=== PATIENT | female | born 1970 | race Caucasian/White ===

== ENCOUNTER 2016-09-12 22:34 | Emergency (ER) | payer SELFPAY ==
[~2016-09-12] VITALS: Ht 157.5 cm; Wt 54.7 kg
[~2016-09-12 22:34] MED LIST: HYDR-3702 PO; HYDR-3754 PO; HYDR-707; IBUP200C PO; LEVO500T16 PO; OXYC1TAB87 PO; TRM50TRX
--- OUTSIDE RECORDS SUMMARY | 2016-09-12 22:38 | XMS REPORT | Referral Summary ---
Author Author [facility] Organization [facility] Address Unknown Phone Unavailable Care Team Providers Care Cytology Manager Name Role Phone Don Torres PCP Unavailable Encounter [facility] [id number] Date(s): 10/24/15 - 10/24/15 [facility] [address] [place] [id number] Discharge Disposition: 01-Home or Self Care Attending Physician: Bryan Bay MD Admitting Physician: Bryan Bay MD Vital Signs Most recent to 1 oldest [Reference Range]: Temperature Oral 36.7 degC [35.8-37.3 degC] (10/24/15 8:39 AM) Problem List No data available for this section Allergies, Adverse Reactions, Alerts Substance Reaction Severity Status naproxen Active penicillin Active Medications [place] 7.5 mg-325 mg oral tablet tabs, Oral, q6hr, 0 Refill(s) Start Date: 10/14/15 Status: OrderedPercocet 5/325 oral tablet 1 tabs, Oral, q4hr, as needed for pain, # 30 tabs, 0 Refill(s) Start Date: 10/24/15 Stop Date: 10/25/15 Status: OrderedPercocet 5/325 oral tablet tabs, Oral, q6hr, 0 Refill(s) Start Date: 10/14/15 Status: OrderedPercocet 7.5/325 oral tablet 1-2 tabs, Oral, q4hr, as needed for pain, # 40 tabs, 0 Refill(s) Start Date: 10/14/15 Stop Date: 11/14/15 Status: Ordered Results No data available for this section Immunizations No data available for this section Procedures Procedure Date Related Diagnosis Body Site History of hysterectomy. Tonsillectomy Social History Social History Type Response Smoking Status Former smoker; Number of years: 20; Total pack years: 1 Assessment and Plan Extracted from: Title: Office Visit Note Author: Vikash Sanches MD Date: 10/24/15 Assessment/Plan Orders: oxyCODONE-acetaminophen, 1 tabs, Oral, q4hr, as needed for pain, # 30 tabs, 0 Refill(s) 45-year-old male with a right closed comminuteddisplaced fracture of the proximal humerus shaft There is been no interval displacement since radiographs last week. Patient is to continue a shoulder immobilizer to the right upper extremity and nonweightbearing right upper extremity. Patient is of a petite size with current shoulder immobilizer much larger than needed. Patient could use a sling with an Todd bandage wrapped around her torso if she wishes. A prescription for Percocet pain medication was prescribed, I discussed with patient to taper the usage of these down as I will not be providing this medication at future appointments. The patient is a follow-up in approximately 3 weeks which will be 5+ weeks total. Radiographs of the right shoulder at that time. May consider pendulum exercises. I discussed the patient with the preceptor. I discussed the patient with the Resident/DENTAL LAB TECHNICIAN/PA/RN/PharmD, reviewed the chart , and concur with the assessment and plan as above.
[2016-09-12] MEDS ORDERED: HYDR-3811 PO (23:09)
[2016-09-12 23:13] LABS: BILIRUBIN,URINE Negative (Negative); CLARITY,URINE Clear; COLOR,URINE Yellow; GLUCOSE, URINE (UA) Negative (Negative); LEUKOCYTE ESTERASE ,URINE 1+ (Negative)
[2016-09-12 23:34] LABS: RBC,URINE 0-2 /HPF; URINE CENTRIFUGED VOLUME 12 mL
[2016-09-12] MEDS ORDERED: SULF1TAB35 PO (23:51)
[2016-09-12] MEDS ORDERED: SULFAMETHOXAZOLE/TRIMETHOPRIM 800-160 MG (SEPTRA DS) TAB PO ONE (23:55)
[2016-09-13 00:48] VITALS: BP 107/56
== END 2016-09-13 00:02 | disposition home or self-care (01) ==
LOC: ED 22:38
DX: N39.0 Urinary tract infection, site not specified (principal)
CPT/HCPCS: 81003; 81015; 87077; 87088; 87186; 99282; 99283